=== PATIENT | female | born 1990 | race Caucasian/White ===

== ENCOUNTER 2022-04-11 20:07 | Inpatient (IN) | payer OTHER ==
[~2022-04-11] VITALS: Ht 154.9 cm; Wt 65.3 kg
[2022-04-11] MEDS ORDERED: PRENATAL + DHA1 EAC1 (23:05)
== END 2022-04-13 14:32 | disposition home or self-care (01) | DRG 833 ==
LOC: OBS/DEL 20:07 → LDR 04-12 16:27 → OBS/DEL 04-12 16:27 → LDR 04-12 16:42
PROVIDERS: ADMIT Obstetrics & Gynecology Obstetrics; ATTEND Obstetrics & Gynecology Obstetrics
PROC: 4A1HXCZ Monitoring of Products of Conception, Cardiac Rate, External Approach (ICD-10-PCS; principal; 2022-04-12)
PROC: BY4FZZZ Ultrasonography of Third Trimester, Single Fetus (ICD-10-PCS; 2022-04-12)
DX: O60.03 Preterm labor without delivery, third trimester (principal); Z3A.33 33 weeks gestation of pregnancy; Z20.822 Contact with and (suspected) exposure to COVID-19